=== PATIENT | female | born 1960 | race African-American/Black ===

== ENCOUNTER 2018-12-08 21:39 | Inpatient (IN) ==
[2018-12-08] MEDS ORDERED: Promethazine/Codeine Oral Sryup 5 ML UDC PO ONE ×2 (22:16→23:20)
[2018-12-08] MEDS ORDERED: Lidocaine 1% 20 ML MDV INFILT ONE (22:30)
--- NOTE | 2018-12-08 22:34 | Emergency Department Note ---
Disposition Clinical Impression: Multifocal pneumonia, Hypoxia, Persistent dry cough Disposition: Admitted As Inpatient Condition: Fair Time of Disposition: 00:30 URI/Sore Throat HPI - General Chief Complaint: ED Upper Respiratory Infection Stated Complaint: Cough Time Seen by Provider: 12/08/18 21:44 Source: patient Mode of arrival: private vehicle Limitations: no limitations Nursing Notes Reviewed: Yes Vital Signs Reviewed: Yes - History of Present Illness HPI Narrative: This is a 58-year-old female who presents to the emergency department for evaluation of spastic intractable coughing for the last week. She states on 11/22 she was diagnosed with bronchitis she was given an antibiotic and steroids, she states symptoms resolved with cough continued and actually became conside rably worse, she was seen by her PCP who changed her cough syrup to chlorphenesin. Patient states the coughing fits are intractable, she has posttussive emesis. She states otherwise she feels well. There is no fever, rhinorrhea. The cough is dry, she states it is spastic in nature. Patient states last vaccinations were in childhood. Pt Subjective Complaint: cough Onset (ago): week(s) Duration: constant, gradually worsening Severity: severe Improves with: nothing Worsens with: nothing Associated symptoms: Reports: cough. Denies: fever, chills, voice changes, myalgias, diaphoresis, headache, rhinorrhea, nasal congestion, sore throat, stiff neck, chest pain, shortness of breath, abdominal pain, nausea, vomiting, diarrhea, rash, epistaxis, ear pain Treatments prior to arrival: acetaminophen, ibuprofen, "cold medicine", other healthcare encounter for this problem - Related Data Home Medications Medication Instructions Recorded Confirmed Atenolol [Tenormin] 25 mg PO HS 12/14/15 02/24/16 Divalproex Sodium [Depakote] 500 mg PO HS 12/14/15 02/24/16 Donepezil [Aricept] 5 mg PO HS 12/14/15 02/24/16 Lovastatin 10 mg PO HS 12/14/15 02/24/16 Mirtazapine [Remeron] 30 mg PO HS 12/14/15 02/24/16 OLANZapine [Zyprexa] 30 mg PO DAILY 12/14/15 02/24/16 Oxybutynin [Ditropan] 5 mg PO HS 12/14/15 02/24/16 Pantoprazole Sodium [Protonix] 40 mg PO DAILY 12/14/15 02/24/16 Travoprost [Travatan Z] 2 drop OP QPM 12/14/15 02/24/16 risperiDONE [Risperidone] 4 mg PO HS 12/14/15 02/24/16 Previous Rx's Medication Instructions Recorded Naproxen [Naprosyn] 500 mg PO BID #6 tablet 05/16/16 Phenylephrine HCl/Prometh HCl 5 ml PO QID PRN #120 syrup 06/29/16 [Promethazine Vc Syrup] Fluticasone Propionate Nasal 120 spray NS DAILY #1 bottle 07/19/16 [Flonase] Loratadine/Pseudophed (12 HR) 1 each PO BID #20 tab.er.12h 07/19/16 [Claritin D (12HR)] Azithromycin [Azithromycin 6-Tab 250 mg PO PER PKG DI #6 tab 10/04/17 Pack] Promethazine/Dextromethorphan 5 ml PO Q6HR PRN #120 ml 10/04/17 [Promethazine-Dm Syrup] Allergies Allergy/AdvReac Type Severity Reaction Status Date / Time No Known Allergies Allergy Verified 12/08/18 22:00 All systems ED: reviewed and negative except as stated. Review of Systems: As Per HPI URI PMH - Past Medical History Medical history: Reports: diabetes, glaucoma, hyperlipidemia, hypertension Surgical history: Reports: non-contributory Surgical history: Reports: cholecystectomy, orthopedic, other Psychiatric history: Reports: bipolar, schizophrenia Family history: Reports: non-contributory - Social History Smoking Status: Never smoker Alcohol use: Reports: none Drug use: Reports: none Physical Exam - General Limitations: no limitations General appearance: alert, in no apparent distress - Head Head exam: atraumatic, normocephalic, normal inspection - Eye Eye exam: Present: normal appearance - ENT ENT exam: mucous membranes moist - Neck Neck exam: Present: normal inspection, full ROM, trachea midline - Chest Chest inspection: Present: normal inspection, symmetric chest wall rise - Respiratory Respiratory exam: Present: normal lung sounds bilaterally, other (Dry spastic coughing, paroxysmal) - Cardiovascular Cardiovascular exam: Present: regular rate, normal rhythm, normal heart sounds - Abdominal Exam Abdominal exam: Present: soft, Non-Tender, normal bowel sounds. Absent: tenderness, distention, guarding, rebound, rigidity - Extremities Exam Extremities exam: Present: normal inspection, full ROM. Absent: tenderness, pedal edema - Neurological Exam Neurological exam: Present: alert, oriented X3 - Psychiatric Psychiatric exam: Present: normal affect, normal mood - Skin Skin exam: Present: warm, dry, intact, normal color Course Course Narrative: Well-developed, afebrile female in moderate amount of distress related to her coughing. Patient has periods of rest between the spastic coughing however even trying to get out a full sentences almost impossible for her as she is coughing vigorously. During this she is not hypoxic. She was noted with a large inspiration afterwards though there is no whoop sound. Rest of physical exam is unremarkable. Patient is not a smoker, no COPD, no history of asthma, Wells criteria 0 for PE. This does not sound like a bronchitis cough, with the intractability and the persistence of it with patient discussing her previous diagnosis of bronchitis concern for pertussis. I do not see any evidence of a PE, food bolus, choking, aspiration. Symptoms are consistent and highly suspicious with the paroxysmal phase of pertussis. We will get a nasal swab, place on droplet precautions, repeat chest x-ray. - Reevaluation(s) Reevaluation #1: Patient has been on pulse oximetry, she is noted without coughing to be a 91%, while she is coughing and she dropped down to 81% while not moving. Patient does appear to be hypoxic. She was placed on 2 L of oxygen and she is now sustaining 98% while not coughing and 96% while coughing. Patient continues with frequent paroxysmal coughing, it is less than before the lidocaine but it continues to be very persistent. I discussed her hypoxia with the patient, we did discuss admission to the hospital for hypoxia, she is agreeable to this plan of care. We will continue a chest x-ray, we will obtain basic labs, we will start IV antibiotics. We will cancel the by mouth medications and switched him to IV. We will initiate azithromycin IV which would cover a pneumonia as well as pertussis. We will also obtain an EKG as patient is on multiple psych medications and interactions with azithromycin may prolong the QT interval. Attending, Dr. Serrano has had one-on-one face time with patient and is agreeable to this plan of care. Time: 23:15 Reevaluation #2: Chest x-ray returns after initial plan for azithromycin revealing a multifocal pneumonia, possibly opportunistic. Original plan for azithromycin to cover a community acquired as well as if pertussis would have came back positive. However after reviewing the results from the radiologist we will increase the antibiotic to Levaquin to broaden the spectrum's, patient with no history of cancer or immunocompromise status. No indication for tuberculosis, patient has not been around anyone tuberculosis, no traveling. She does not volunteer nurs [facility] homes or prisons, she has not had any weight loss or night sweats. Patient states the only place she really goes [facility] and they [facility] and kiss there. During admission, patient will most likely need a bronchoscopy to rule out fungal or other etiologies for the pneumonia. Time: 23:32 Reevaluation #3: Patient resting quietly, cough continues to be better though it is still very persistent. Patient maintains oxygenation on 2 L of O2, vital signs are stable. Labs returned unremarkable with only slightly elevated white count of 11.5, no evidence of anemia. Metabolic panel is within normal limits. EKG reveals a normal sinus rhythm with a ventricular rate of 90 bpm, CO interval 166 ms, QTC 436 ms, there is no evidence of ischemia or ectopy. Most importantly QTC is within normal limits has macrolide antibiotics to prolonged QTC patient does appear to be on multiple psychiatric medications. Patient continues to be agreeable with admission, we will add blood cultures, pro-calcitonin, lactic acid, chest CTA. Hospitalist, Dr. Dodson, has been consulted and is agreeable to accept patient for inpatient admission. Time: 00:30 Vital Signs Temperature 98.8 F 12/08/18 21:54 Pulse Rate 90 12/08/18 21:54 Respiratory Rate 18 12/08/18 21:54 Blood Pressure 133/83 12/08/18 21:54 O2 Sat by Pulse Oximetry 91 12/08/18 21:54 Temperature 99.1 F 12/09/18 02:19 Pulse Rate 85 12/09/18 02:19 Respiratory Rate 18 12/09/18 04:07 Blood Pressure 148/80 12/09/18 02:19 O2 Sat by Pulse Oximetry 93 12/09/18 04:07 Oxygen Delivery Oxygen Delivery Nasal Cannula Upper Respiratory Infection - Differential Diagnosis Differential Diagnosis: Likely: pneumonia - Medical Records Medical records reviewed: Yes I reviewed the patient's medical records. - Lab Data Lab results reviewed: Yes I reviewed the patient's lab results. Result diagrams: 12/08/18 23:25 12/08/18 23:25 Lab Results 12/08/18 12/08/18 12/08/18 Range/Units 22:40 23:25 23:25 WBC 11.5 H (4.3-11.1) K/mcL RBC 3.96 (3.82-4.97) M/mcL Hgb 12.0 (11.5-15.4) g/dL Hct 37.7 (35.3-44.9) % MCV 95.2 (83.0-100.0) fL MCH 30.3 (28.0-33.3) pg MCHC 31.8 (31.6-35.5) g/dL RDW 13.4 (11.5-14.5) % Plt Count 152 (140-400) K/mcL MPV 8.5 L (9.4-12.4) fL Immature Gran % 1.0 (0-4) % Seg Neutrophils % 56.6 % Lymphocytes % 31.4 % Monocytes % 7.9 % Eosinophils % 2.8 % Basophils % 0.3 % Neutrophils # 6.5 (1.6-8.9) K/mcL Lymphocytes # 3.6 (0.6-4.6) K/mcL Monocytes # 0.9 (0.0-1.3) K/mcL Eosinophils # 0.3 (0.0-0.6) K/mcL Basophils # 0.0 (0.0-0.2) K/mcL Sodium 139 (136-145) mEq/L Potassium 4.3 (3.5-5.1) mEq/L Chloride 106 (98-107) mEq/L Carbon Dioxide 23 (23-29) mEq/L BUN 9 (6-20) mg/dL Creatinine 0.81 (0.60-1.20) mg/dL Est GFR ( Amer) > 60 (> 60) Est GFR (Non-Af Amer) > 60 (> 60) BUN/Creatinine Ratio 11 (6-26) Glucose 118 H (70-105) mg/dL Calculated Osmolality 288 (280-300) Calcium 9.3 (8.6-10.3) mg/dL Chlamy pneumoniae PCR Not Detected (Not Detect) Adenovirus (PCR) Not Detected (Not Detect) B. pertussis DNA (PCR) Not Detected (Not Detect) B.parapertussis DNA PCR Not Detected (Not Detect) Coronavirus OC43 (PCR) Not Detected (Not Detect) Coronavirus HKU1 (PCR) Not Detected (Not Detect) Coronavirus 229E (PCR) Not Detected (Not Detect) Coronavirus NL63 (PCR) Not Detected (Not Detect) Human Metapneumovir PCR Not Detected (Not Detect) Influenza A (H1) PCR Not Detected (Not Detect) Influ A (H1N1/09) PCR Not Detected (Not Detect) Influenza A (H3) PCR Not Detected (Not Detect) Influenza A Untype (PCR) Not Detected (Not Detect) Influenza Type B (PCR) Not Detected (Not Detect) M.pneumoniae DNA (PCR) Not Detected (Not Detect) Parainfluenza 1 (PCR) Not Detected (Not Detect) Parainfluenza 2 (PCR) Not Detected (Not Detect) Parainfluenza 3 (PCR) Not Detected (Not Detect) Parainfluenza 4 (PCR) Not Detected (Not Detect) RSV (PCR) Not Detected (Not Detect) Entero/Rhino (PCR) Not Detected (Not Detect) - Radiology Data Radiology results reviewed: Yes I reviewed the patient's radiology results. - EKG Data EKG attestation: Yes I reviewed and interpreted this EKG.
[2018-12-08] MEDS ORDERED: Dexamethasone 10 MG/ML VIAL PO ONE (22:40)
[2018-12-08] MEDS ORDERED: Azithromycin 500 MG in D5% in Water 250 ML IVPB ONE (23:20)
[2018-12-08] MEDS ORDERED: methylPREDNISolone 125 MG/2 ML VIAL IVP ONE (23:20)
[2018-12-08] MEDS ORDERED: Levofloxacin 750 MG/150 ML 750 MG/150 ML BAG IVPB ONE (23:32)
--- NOTE | 2018-12-08 23:32 | Emergency Department Note ---
Disposition Clinical Impression: Multifocal pneumonia Disposition: Admitted As Inpatient Condition: Fair Forms: ED Satisfaction Letter Time of Disposition: 23:35 General Adult HPI - General Chief complaint: ED Upper Respiratory Infection Stated complaint: Cough Time Seen by Provider: 12/08/18 21:44 Source: patient Mode of arrival: private vehicle Limitations: no limitations Nursing Notes Reviewed: Yes Vital Signs Reviewed: Yes - History of Present Illness HPI Narrative: Attestation note: Patient was seen with the emergency medicine resident/nurse practitioner/physician events and promotions assistant/transitional resident/medical student: MICKEY FRANKLIN. I was present for the significant portions of the performance and interpretation of procedures and EKGs. I have personally performed a face to face evaluation on this patient. I have reviewed and agree with history and physical examination patient management and disposition. 58-year-old female no history of smoking COPD or asthma has come in with since the end of October and worsening over the past week no contacts exotic food or recent travel. Patient does have paroxysms of coughing that is nonprod uctive when she coughs her sats drop into the mid to low 80s. She responsible supple normal oxygen chest x-ray was a portable PA and lateral per radiology shows patchy multifocal pneumonia possibly opportunistic. Waiting for labs to come back patient did get a nebulized lidocaine treatment which helped with her cough slightly patient was given antibiotics. Patient will be admitted for persistent cough multifocal pneumonia and hypoxia. We will add on IV antibiotics. Providing 45 minutes critical care service this patient. Admission disposition pending Pain Scale: 0 - Related Data Home Medications Medication Instructions Recorded Confirmed Atenolol [Tenormin] 25 mg PO HS 12/14/15 02/24/16 Divalproex Sodium [Depakote] 500 mg PO HS 12/14/15 02/24/16 Donepezil [Aricept] 5 mg PO HS 12/14/15 02/24/16 Lovastatin 10 mg PO HS 12/14/15 02/24/16 Mirtazapine [Remeron] 30 mg PO HS 12/14/15 02/24/16 OLANZapine [Zyprexa] 30 mg PO DAILY 12/14/15 02/24/16 Oxybutynin [Ditropan] 5 mg PO HS 12/14/15 02/24/16 Pantoprazole Sodium [Protonix] 40 mg PO DAILY 12/14/15 02/24/16 Travoprost [Travatan Z] 2 drop OP QPM 12/14/15 02/24/16 risperiDONE [Risperidone] 4 mg PO HS 12/14/15 02/24/16 Previous Rx's Medication Instructions Recorded Naproxen [Naprosyn] 500 mg PO BID #6 tablet 05/16/16 Phenylephrine HCl/Prometh HCl 5 ml PO QID PRN #120 syrup 06/29/16 [Promethazine Vc Syrup] Fluticasone Propionate Nasal 120 spray NS DAILY #1 bottle 07/19/16 [Flonase] Loratadine/Pseudophed (12 HR) 1 each PO BID #20 tab.er.12h 07/19/16 [Claritin D (12HR)] Azithromycin [Azithromycin 6-Tab 250 mg PO PER PKG DI #6 tab 10/04/17 Pack] Promethazine/Dextromethorphan 5 ml PO Q6HR PRN #120 ml 10/04/17 [Promethazine-Dm Syrup] Allergies Allergy/AdvReac Type Severity Reaction Status Date / Time No Known Allergies Allergy Verified 12/08/18 22:00 Past Medical History - Past Medical History Medical history: Reports: diabetes, glaucoma, hyperlipidemia, hypertension Surgical history: Reports: cholecystectomy, orthopedic, other Psychiatric history: Reports: bipolar, schizophrenia - Social History Smoking Status: Never smoker Smokeless Tobacco Status: No Alcohol use: Reports: none Drug use: Reports: none Physical Exam - General Limitations: no limitations General appearance: alert, in no apparent distress Course Vital Signs Temperature 98.8 F 12/08/18 21:54 Pulse Rate 90 12/08/18 21:54 Respiratory Rate 18 12/08/18 21:54 Blood Pressure 133/83 12/08/18 21:54 O2 Sat by Pulse Oximetry 12/08/18 21:54 Temperature 98.8 F 12/08/18 21:54 Pulse Rate 90 12/08/18 21:54 Respiratory Rate 18 12/08/18 21:54 Blood Pressure 133/83 12/08/18 21:54 O2 Sat by Pulse Oximetry 12/08/18 21:54 Oxygen Delivery Oxygen Delivery Room Air
[2018-12-08 23:50] LABS: Basophils % 0.3 %; Eosinophils # 0.3 K/mcL (0.0-0.6); Eosinophils % 2.8 %; Hematocrit 37.7 % (35.3-44.9); Lymphocytes # 3.6 K/mcL (0.6-4.6); Lymphocytes % 31.4 %; Mean Corpuscular HGB Conc 31.8 g/dL (31.6-35.5); Mean Corpuscular Hemoglobin 30.3 pg (28.0-33.3); Mean Corpuscular Volume 95.2 fL (83.0-100.0); Mean Platelet Volume 8.5 fL (9.4-12.4); Monocytes # 0.9 K/mcL (0.0-1.3); Monocytes % 7.9 %; Neutrophils # 6.5 K/mcL (1.6-8.9); Platelet Count 152 K/mcL (140-400); Red Blood Count 3.96 M/mcL (3.82-4.97); Red Cell Distribution Width 13.4 % (11.5-14.5); Segmented Neutrophils % 56.6 %; White Blood Count 11.5 K/mcL (4.3-11.1)
[2018-12-09 00:06] LABS: BUN/Creatinine Ratio 11 (6-26); Blood Urea Nitrogen 9 mg/dL (6-20); Calcium 9.3 mg/dL (8.6-10.3); Carbon Dioxide 23 mEq/L (23-29); Chloride 106 mEq/L (98-107); Glucose 118 mg/dL (70-105); Osmolality,Calculated 288 (280-300); Potassium 4.3 mEq/L (3.5-5.1); Sodium 139 mEq/L (136-145); eGFR For African Americans > 60 (> 60); eGFR For Non-African Americans > 60 (> 60)
[2018-12-09] MEDS ORDERED: Isovue-370 500 ML BOTTLE IVP ONE ×2 (00:30→00:32)
[2018-12-09] MEDS ORDERED: Dextrose Gel 15 GM/37.5 ML TUBE PO PRN ×2 (00:54)
[2018-12-09] MEDS ORDERED: *HR* Dextrose 50 % in Water (Syg) 50 ML SYRINGE IVP PRN (00:54)
[2018-12-09] MEDS ORDERED: Acetaminophen 325 MG TABLET PO PRN (01:01)
--- NOTE | 2018-12-09 01:15 | Internal Med History&Physical ---
Date of Encounter: 12/09/18 Time of Encounter: 01:13 Internal Medicine - H&P: HPI Chief complaint: cough Admitted From: Home Plans for Post Hospital Care: Home History of present illness: Constanza Price is a 58 year old woman with hypertension and diabetes who presents to the ER complaining of 2 weeks of incessant cough that has been progressively worsening. She says she sought medical attention from her PCP as well as an urgent care center another time where she was diagnosed with bronchitis and given short courses of steroids and antibiotics. She denies ever having chest pain, fever or chills at any time and describes her cough as non- productive but frequent and severe enough to induce vomiting afterwards. She now coughs profusely just with talking and develops a sensation of air-hunger from the severity. She was seen in the [facility] where an x-ray was done and on my reviews shows a notable right pleural effusion. The report also described concerns of multifocal pneumonia. She was also noted to be hypoxic on room air and when coughing now requiring supplemental oxygen. She was started on empiric abx and is admitted for further care. Vitals: Reviewed General: Obese AA F in NAD at rest. Multiple bouts of severe coughing when she starts taling with notable dyspnea associated. Skin: Warm and dry. HEENT: Moist mucous membranes. No conjunctivae pallor. Neck: No lymphadenopathy. No JVD. No carotid bruits. No palpable thyroid. Chest: Diminished thoracic expansion with reduced inspiratory capacity. Reduced breath sounds on auscultation. Heart: Normal S1 & S2; rhythmic. No rubs or murmurs. Abdomen: Non-distended, soft and non-tender to palpation. No peritoneal reaction. Extremities: No clubbing, cyanosis. 1+ ankle edema. No calf tenderness. Normal distal pulses. Neurological: Awake, alert and oriented to person, place and time. No focal deficits. Psych: Affect appropriate. Assessment/Plan 1. Acute hypoxic respiratory failure: She is seen to have a new right pleural effusion of unclear etiology. Suspect this may be a para or more likely metapneumonic effusion given the 2 week symptomatology. Will have her undergo contrast-enhanced CT of her chest to evaluate for underlying consolidations being hidden by the effusion or other potential causes. Will start treatment empirically for CAP with ceftriaxone/azithromycin; the latter especially given the concern for Pertussis noting the incessant cough with post-tussive emesis. Will also send a respiratory infection panel as she may have initially started with a viral illness and a subsequent superimposed bacterial condition. Blood cultures will be sent. Nebulizer treatment will be given over night. If no improvement with abx, she may benefit from a diagnostic thoracentesis. 2. Diabetes: A1c is 7.3%. Will place on insulin sliding scale while here. 3. HTN: Will await medication reconciliation to start her home antihypertensives. 4. Obesity: She has associated sleep apnea but says she cannot tolerate CPAP. Weight loss advised. Past Med Surg Social Fam HX - Past Medical History Medical history: diabetes, glaucoma, hyperlipidemia, hypertension Additional medical history: sleep apnea. hiatal hernia Psychiatric history: bipolar, schizophrenia - Past Surgical History Surgical History: cholecystectomy, orthopedic, other Additional surgical history: finger surgery - Social History Smoking Status: Never smoker Smokeless Tobacco Status: No Alcohol use: none Drug use: none Internal Medicine - H&P: Meds Atenolol [Tenormin] 25 mg PO HS 12/14/15 [History] Divalproex Sodium [Depakote] 500 mg PO HS 12/14/15 [History] Donepezil [Aricept] 5 mg PO HS 12/14/15 [History] Lovastatin 10 mg PO HS 12/14/15 [History] Mirtazapine [Remeron] 30 mg PO HS 12/14/15 [History] OLANZapine [Zyprexa] 30 mg PO DAILY 12/14/15 [History] Oxybutynin [Ditropan] 5 mg PO HS 12/14/15 [History] Pantoprazole Sodium [Protonix] 40 mg PO DAILY 12/14/15 [History] Travoprost [Travatan Z] 2 drop OP QPM 12/14/15 [History] risperiDONE [Risperidone] 4 mg PO HS 12/14/15 [History] Naproxen [Naprosyn] 500 mg PO BID #6 tablet 05/16/16 [Rx] Phenylephrine HCl/Prometh HCl [Promethazine Vc Syrup] 5 ml PO QID PRN #120 syrup 06/29/16 [Rx] Fluticasone Propionate Nasal [Flonase] 120 spray NS DAILY #1 bottle 07/19/16 [Rx] Loratadine/Pseudophed (12 HR) [Claritin D (12HR)] 1 each PO BID #20 tab.er.12h 07/19/16 [Rx] Azithromycin [Azithromycin 6-Tab Pack] 250 mg PO PER PKG DI #6 tab 10/04/17 [Rx] Promethazine/Dextromethorphan [Promethazine-Dm Syrup] 5 ml PO Q6HR PRN #120 ml 10/04/17 [Rx] Allergy/AdvReac Type Severity Reaction Status Date / Time No Known Allergies Allergy Verified 12/08/18 22:00 All Systems PM: A 10-system review of systems was performed and is negative for pertinent findings except as documented above in the HPI. Family history reviewed and found non-contributory. - Constitutional Vitals: Temp Pulse Resp BP Pulse Ox 98.8 F 91 18 137/95 97 12/08/18 21:54 12/08/18 23:29 12/08/18 23:29 12/08/18 23:29 12/08/18 23:29 Exam: . Internal Med - H&P Results - Labs CBC & Chem 7: 12/08/18 23:25 12/08/18 23:25 Labs: Short CBC 12/08/18 Range/Units 23:25 WBC 11.5 H (4.3-11.1) K/mcL Hgb 12.0 (11.5-15.4) g/dL Hct 37.7 (35.3-44.9) % Plt Count 152 (140-400) K/mcL Neutrophils # 6.5 (1.6-8.9) K/mcL BMP 12/08/18 23:25 Sodium 139 Potassium 4.3 Chloride 106 Carbon Dioxide 23 BUN 9 Creatinine 0.81 Glucose 118 H Calcium 9.3 - Impressions ITS Impressions Chest X-Ray 12/08/18 22:22 IMPRESSION: Patchy bilateral perihilar infiltrate. Findings suggests a multifocal pneumonia, possibly opportunistic. D/ / Bubba Werner MD / Bubba Werner MD Interpreting Provider: Bubba Werner MD - Time Spent With Patient Total time spent is greater than 50% in coordination of care (as documented) at patient's floor/unit and/or counseling patient: Greater than 35 minutes
--- NOTE | 2018-12-09 01:37 | Event Note ---
Date of Encounter: 12/09/18 Time of Encounter: 01:32 I have been notified by [facility] that the CT scan ordered is positive for pulmonary embolism affecting all 3 lobes of her right lung. Will start UFH and schedule for echo in the morning.
[2018-12-09] MEDS ORDERED: *HR* Heparin 5,000 UNIT/ML VIAL IVP PRN ×2 (01:41)
[2018-12-09] MEDS ORDERED: *HR* Heparin 5,000 UNIT/ML VIAL IVP ONE (01:41)
[2018-12-09 02:21] LABS: Heparin anti-factor XA UFH 0.01 IU/mL (0.30-0.70); INR 1.1; Prothrombin Time 12.5 Seconds (9.4-12.1)
[2018-12-09 02:24] LABS: Activated Partial Thrombo Time 30.6 Seconds (26.0-36.0)
[2018-12-09 02:34] LABS: Adenovirus Not Detected (Not Detect); Bordetella Pertussis Not Detected (Not Detect); Chlamydophila pneumoniae Not Detected (Not Detect); Coronavirus 229E Not Detected (Not Detect); Coronavirus HKU1 Not Detected (Not Detect); Coronavirus NL63 Not Detected (Not Detect); Coronavirus OC43 Not Detected (Not Detect); Human Metapneumovirus Not Detected (Not Detect); Human Rhinovirus/Enterovirus Not Detected (Not Detect); Influenza A Subtype 2009 H1 Not Detected (Not Detect); Influenza A Untypeable Not Detected (Not Detect); Influenza B Not Detected (Not Detect); Parainfluenza Virus 1 Not Detected (Not Detect); Parainfluenza Virus 2 Not Detected (Not Detect); Parainfluenza Virus 3 Not Detected (Not Detect); Parainfluenza Virus 4 Not Detected (Not Detect); Respiratory Syncytial Virus Not Detected (Not Detect)
[2018-12-09 02:35] LABS: Mycoplasma pneumoniae Not Detected (Not Detect)
[2018-12-09] MEDS ORDERED: Heparin 25,000 UNIT/250 ML D5W 25,000 UNIT/250 ML IV.SOLN IVC SCH (03:15)
[2018-12-09] MEDS: GuaiFENesin/Codeine Oral Soln 5 ML UDC PO PRN ×3 (03:45→20:46)
[2018-12-09] MEDS: Ipratropium/Albuterol Neb 3 ML IH SCH ×3 (04:04→11:17)
[2018-12-09] MEDS ORDERED: *HR* Heparin 5,000 UNIT/ML VIAL SQ SCH (06:00)
[2018-12-09] MEDS: Insulin LISPRO 300 UNITS/3 ML VIAL SQ SCH ×3 (08:08→16:30)
[2018-12-09] MEDS: cefTRIAXone 1,000 MG in Water for inj. (sterile) 20 ML 10 ML IVPB SCH (08:11)
--- NOTE | 2018-12-09 12:29 | Event Note ---
Date of Encounter: 12/09/18 Time of Encounter: 12:28 Patient hospitalized here for acute respiratory failure due to acute PE. CT angiogram of the chest confirmed PE. Patient on IV heparin initially. Will transition to subcutaneous Lovenox. Consider starting direct oral anticoagulants tomorrow based on Trinh check. Continue antibiotics as CT angiogram also shows possible pneumonia. Await culture results. Plan to discharge tomorrow if patient continues to do well.
[2018-12-09] MEDS ORDERED: OLANZAPINE 30 MG PO SCH (12:45)
[2018-12-09] MEDS: *HR* Enoxaparin 100 MG/ML SYRINGE SQ SCH (17:00)
[2018-12-09] MEDS ORDERED: Mirtazapine 15 MG TABLET PO SCH (21:00)
[2018-12-09] MEDS ORDERED: Insulin LISPRO 300 UNITS/3 ML VIAL SQ SCH (21:00)
[2018-12-09] MEDS ORDERED: Latanoprost 2.5 ML BOTTLE BOTH EYES SCH (21:00)
[2018-12-09] MEDS ORDERED: risperiDONE 1 MG TABLET PO SCH (21:00)
[2018-12-09] MEDS ORDERED: OLANZapine 10 MG TAB.RAPDIS PO SCH (21:00)
[2018-12-09] MEDS ORDERED: Divalproex (12 HR) 250 MG TABLET PO SCH (21:00)
[2018-12-09] MEDS ORDERED: Azithromycin 500 MG in D5% in Water 250 ML IVPB SCH (23:00)
[2018-12-10 04:36] LABS: Basophils % 0.2 %; Eosinophils % 0.1 %; Hematocrit 32.6 % (35.3-44.9); Hemoglobin 10.5 g/dL (11.5-15.4); Immature Granulocytes % 0.9 % (0-4); Lymphocytes # 3.2 K/mcL (0.6-4.6); Lymphocytes % 25.4 %; Mean Corpuscular HGB Conc 32.2 g/dL (31.6-35.5); Mean Corpuscular Volume 96.2 fL (83.0-100.0); Mean Platelet Volume 8.4 fL (9.4-12.4); Monocytes % 8.1 %; Neutrophils # 8.2 K/mcL (1.6-8.9); Platelet Count 147 K/mcL (140-400); Red Blood Count 3.39 M/mcL (3.82-4.97); Red Cell Distribution Width 13.5 % (11.5-14.5); Segmented Neutrophils % 65.3 %; White Blood Count 12.5 K/mcL (4.3-11.1)
[2018-12-10 04:55] LABS: BUN/Creatinine Ratio 20 (6-26); Blood Urea Nitrogen 17 mg/dL (6-20); Calcium 9.3 mg/dL (8.6-10.3); Carbon Dioxide 21 mEq/L (23-29); Chloride 105 mEq/L (98-107); Glucose 244 mg/dL (70-105); Osmolality,Calculated 284 (280-300); Potassium 4.3 mEq/L (3.5-5.1); Sodium 132 mEq/L (136-145); eGFR For African Americans > 60 (> 60); eGFR For Non-African Americans > 60 (> 60)
[2018-12-10] MEDS: *HR* Enoxaparin 100 MG/ML SYRINGE SQ SCH (05:06)
[2018-12-10] MEDS: cefTRIAXone 1,000 MG in Water for inj. (sterile) 20 ML 10 ML IVPB SCH (07:20)
[2018-12-10] MEDS: Insulin LISPRO 300 UNITS/3 ML VIAL SQ SCH ×2 (07:21→12:04)
[2018-12-10] MEDS: GuaiFENesin/Codeine Oral Soln 5 ML UDC PO PRN (07:23)
[2018-12-10 11:17] VITALS: BP 124/79
--- NOTE | 2018-12-10 11:33 | Discharge Summary ---
- NOTES TO OUTPATIENT PROVIDER Notes to Outpatient Provider: Patient with history of hypertension and diabetes was initially hospitalized with acute hypoxic respiratory failure and suspected of having pneumonia. CT angiogram of the chest was done which showed acute PE involving the right upper middle and lower lobes. She was started on IV heparin and her symptoms have significantly improved. She is now doing much better overall and is stable to be discharged home. She will be discharged on Xarelto to be taken for at least 6 months to continue treating her PE. She will also complete a short course of antibiotics as the CT also showed possible multifocal pneumonia. Orders not resulted at time of discharge: Pending orders 12/08/18 23:53 Sputum Culture [Culture,Sputum with Gram Stain] [] Stat 12/09/18 00:57 Culture,Blood [] Stat 12/09/18 08:28 Legionella Antigen [] Routine S. Pneumoniae Antigen [] Routine Date of Encounter: 12/10/18 Time of Encounter: 11:30 - Discharge Diagnosis (1) Acute pulmonary embolism Priority: Primary Status: Acute Qualifiers: Pulmonary embolism type: other Acute cor pulmonale presence: without acute cor pulmonale Qualified Code(s): I26.99 - Other pulmonary embolism without acute cor pulmonale (2) Diabetes mellitus, type 2 Priority: Secondary Status: Chronic Qualifiers: Diabetes mellitus retirement insulin use: without intermodal customer service use Diabetes mellitus complication status: with hyperglycemia Qualified Code(s): E11.65 - Type 2 diabetes mellitus with hyperglycemia (3) Essential hypertension Priority: Secondary Status: Chronic (4) Hypoxia Priority: Secondary Status: Resolved (5) Multifocal pneumonia Priority: Secondary Status: Acute Hospital course: Ms. Price is a 58 year old female Patient with history of hypertension and diabetes was initially hospitalized with acute hypoxic respiratory failure and suspected of having pneumonia. CT angiogram of the chest was done which showed acute PE involving the right upper middle and lower lobes. She was started on IV heparin and her symptoms have significantly improved. She is now doing much better overall and is stable to be discharged home. She will be discharged on Xarelto to be taken for at least 6 months to continue treating her PE. She will also complete a short course of antibiotics as the CT also showed possible multifocal pneumonia. A prescription for Xarelto has been sent to her pharmacy. She is advised to return to the ER if she notes any significant bleeding especially if she has bloody stools or dark colored stools. She expressed understanding. Discharge discussed with: patient - Time Spent with Patient Total time spent providing and/or coordinating discharge services: Time spent: Greater than 30 minutes (32 min) - Discharge Medications Prescriptions: New levoFLOXacin [Levaquin] 750 mg PO DAILY #6 tablet Rivaroxaban [Xarelto] 20 mg PO 1700 tablet Rivaroxaban [Xarelto] 15 mg PO 0600,1800 tablet Continued Donepezil [Aricept] 5 mg PO HS Oxybutynin [Ditropan] 5 mg PO HS Atenolol [Tenormin] 25 mg PO HS Travoprost [Travatan Z] 2 drop OP QPM risperiDONE [Risperidone] 4 mg PO HS Pantoprazole Sodium [Protonix] 40 mg PO DAILY OLANZapine [Zyprexa] 30 mg PO DAILY Mirtazapine [Remeron] 30 mg PO HS Lovastatin 10 mg PO HS Divalproex Sodium [Depakote] 750 mg PO HS Naproxen [Naprosyn] 500 mg PO BID #6 tablet Phenylephrine HCl/Prometh HCl [Promethazine Vc Syrup] 5 ml PO QID PRN #120 syrup PRN Reason: Cough Fluticasone Propionate Nasal [Flonase] 120 spray NS DAILY #1 bottle Loratadine/Pseudophed (12 HR) [Claritin D (12HR)] 1 each PO BID #20 tab.er.12h Promethazine/Dextromethorphan [Promethazine-Dm Solution] 5 ml PO Q6HR PRN #120 ml PRN Reason: Cough Discontinued Azithromycin [Azithromycin 6-Tab Pack] 250 mg PO PER PKG DI #6 tab Home Medications: Atenolol [Tenormin] 25 mg PO HS 12/14/15 [History] Divalproex Sodium [Depakote] 750 mg PO HS 12/14/15 [History] Donepezil [Aricept] 5 mg PO HS 12/14/15 [History] Lovastatin 10 mg PO HS 12/14/15 [History] Mirtazapine [Remeron] 30 mg PO HS 12/14/15 [History] OLANZapine [Zyprexa] 30 mg PO DAILY 12/14/15 [History] Oxybutynin [Ditropan] 5 mg PO HS 12/14/15 [History] Pantoprazole Sodium [Protonix] 40 mg PO DAILY 12/14/15 [History] Travoprost [Travatan Z] 2 drop OP QPM 12/14/15 [History] risperiDONE [Risperidone] 4 mg PO HS 12/14/15 [History] Naproxen [Naprosyn] 500 mg PO BID #6 tablet 05/16/16 [Rx] Phenylephrine HCl/Prometh HCl [Promethazine Vc Syrup] 5 ml PO QID PRN #120 syrup 06/29/16 [Rx] Fluticasone Propionate Nasal [Flonase] 120 spray NS DAILY #1 bottle 07/19/16 [Rx] Loratadine/Pseudophed (12 HR) [Claritin D (12HR)] 1 each PO BID #20 tab.er.12h 07/19/16 [Rx] Promethazine/Dextromethorphan [Promethazine-Dm Solution] 5 ml PO Q6HR PRN #120 ml 10/04/17 [Rx] Rivaroxaban [Xarelto] 15 mg PO 0600,1800 tablet 12/10/18 [Rx] Rivaroxaban [Xarelto] 20 mg PO 1700 tablet 12/10/18 [Rx] levoFLOXacin [Levaquin] 750 mg PO DAILY #6 tablet 12/10/18 [Rx] Allergies/Adverse Reactions: Allergy/AdvReac Type Severity Reaction Status Date / Time No Known Allergies Allergy Verified 12/08/18 22:00 Date of admission: 12/09/18 00:57 Primary care physician: Ramon Yañez MD Discharging clinician: Courtney Sánchez Anticipated date of discharge: 12/10/18 - Constitutional Vitals: Temp Pulse Resp BP Pulse Ox 97.6 F 69 18 124/79 94 12/10/18 11:15 12/10/18 11:15 12/10/18 11:15 12/10/18 11:15 12/10/18 11:15 General appearance: Present: cooperative, pleasant, answers questions appropriately Exam: General: Patient is alert, no acute distress, oriented x 3 Respiratory: Coarse breath sounds bilaterally Cardiovascular: Regular rate and rhythm. s1 and s2 normal No clicks, rubs, gallops, or murmurs. No pedal edema Abdomen: Abdomen is soft, nontender. Bowel sounds are present Musculoskeletal: Spontaneously moving all extremities Skin: warm, dry, intact. Neuro: Alert oriented x 3 normal cranial nerves, no focal deficits - Patient Status Disposition: Home, Self-Care Condition: Good Functional capacity at discharge: independent ambulation Overall status at discharge: patient is progressing back to baseline - Discharge Instructions Instructions: Diabetes Mellitus Type 2 in Adults (DC), Pneumonia (DC), Pulmonary Embolism (DC) Follow Up With: Ramon Yañez MD [Primary Care Provider] - (In 1 week) Additional Instructions: Return to the ER if he developed any blood in the stools or dark colored stools or urine get unusually weak and tired and fatigued - Diet and Activity Activity: increase activity as tolerated Diet: diabetic diet, low fat, low cholesterol, low salt diet
[2018-12-10] MEDS ORDERED: *HR* Rivaroxaban 15 MG TABLET PO SCH (18:00)
--- NOTE | 2018-12-11 10:58 | Electrocardiograph Report ---
[address] [address] Test Date: 2018-12-09 Pat Name: Constanza Price Department: [id number] Room: 2A41 Gender: F Relay Checker: : 1960 Requested By: Veronica Holland Order Number: [id number] Reading MD: Samina Huff Measurements Intervals [place] Rate: 86 P: 35 DE: 150 QRS: 5 QRSD: 94 T: 32 QT: 365 QTc: 437 Interpretive Statements Sinus rhythm Electronically Signed On 12-11-2018 10:57:09 EDT by Samina Huff
[2018-12-31] MEDS ORDERED: *HR* Rivaroxaban 10 MG TABLET PO SCH (17:00)
== END 2018-12-10 14:36 | disposition home or self-care (01) | DRG 175 ==
LOC: EMEROOARM 21:39 → 2ANU 21:39
PROVIDERS: ADMIT Family Medicine; ATTEND Family Medicine